=== PATIENT | male | born 1940 | race Two or more races ===

== ENCOUNTER 2023-01-11 08:14 | Outpatient (OUT) | payer MEDICARE, OTHER, SELFPAY ==
[2023-01-11 09:00] LABS: Anion Gap 12.8; BUN Creatinine Ratio 17.2; Calcium 9.2 mg/dL (8.5-10.1); Carbon Dioxide 26.6 mmol/L (21.0-32.0); Chloride 103 mmol/L (98-107); Estimated GFR (African America >60 (>=60); Estimated GFR (Non-African Ame >60 (>=60); Glucose 127 mg/dL (74-106); Potassium 4.4 mmol/L (3.5-5.1); Sodium 138 mmol/L (136-145)
== END 2023-01-11 08:15 | disposition home or self-care (01) ==
LOC: LAB 08:19
PROVIDERS: PCP Family Medicine; Visit Provider Nurse Practitioner
DX: I10 Essential (primary) hypertension (principal); I25.10 Atherosclerotic heart disease of native coronary artery without angina pectoris
CPT/HCPCS: 36415; 80048